=== PATIENT | female | born 1995 | race African-American/Black ===

== ENCOUNTER 2023-01-03 16:36 | Emergency (ER) | payer OTHER ==
[~2023-01-03] VITALS: Ht 170.2 cm; Wt 52.2 kg
[2023-01-03 16:41] VITALS: BP 115/75
[2023-01-03] MEDS ORDERED: TDAP [DIPH/PERTUSSIS/TET] 0.5 ML VIAL IM ONE ×2 (17:30→18:22)
[2023-01-03] MEDS ORDERED: BACITRACIN ZINC OINT PACKET 1 EA PACKET TP ONE ×2 (17:30→18:21)
[2023-01-03] MEDS ORDERED: CYCL10TA9 PO (17:37)
[2023-01-03] MEDS ORDERED: NAPR-1009 PO (17:37)
--- NOTE | 2023-01-03 19:13 | NUR ---
Patient discharged to home in stable condition. Written and verbal after care instructions given. Patient verbalizes understanding of instruction.
== END 2023-01-03 19:13 | disposition home or self-care (01) ==
LOC: ER 16:43
DX: S13.8XXA Sprain of joints and ligaments of other parts of neck, initial encounter (principal); S70.11XA Contusion of right thigh, initial encounter; S50.01XA Contusion of right elbow, initial encounter; Z79.899 Other long term (current) drug therapy; V89.0XXA Person injured in unspecified motor-vehicle accident, nontraffic, initial encounter; Y93.89 Activity, other specified; Y92.89 Other specified places as the place of occurrence of the external cause; Y99.8 Other external cause status
CPT/HCPCS: 73080-TC; 90715